=== PATIENT | male | born 1965 | race Caucasian/White ===

== ENCOUNTER 2023-07-28 09:56 | Day surgery (SDC) | payer OTHER, BC ==
[~2023-07-28] VITALS: Ht 175.3 cm; Wt 75.4 kg
[~2023-07-28 09:56] MED LIST: CYCL10 PO; IBUP800 PO; TOBR.3OPSO OP; TRAM50 PO
[2023-07-28 14:08] VITALS: BP 147/95
--- NOTE | 2023-07-28 14:34 | NUR ---
07/28/23 1434 CELSA HICKEY IV REMOVED CATH INTACT [facility]
== END 2023-07-28 14:34 | disposition home or self-care (01) ==
LOC: ORSCSDS 09:56
PROVIDERS: Orthopaedic Surgery
PROC: 0SBC4ZZ Excision of Right Knee Joint, Percutaneous Endoscopic Approach (ICD-10-PCS; principal; 2023-07-28 11:30)
DX: S83.242A Other tear of medial meniscus, current injury, left knee, initial encounter (principal)
CPT/HCPCS: A9270; J0690; J1100; J2250; J2405; J2704; J3010; J7120